=== PATIENT | female | born 1985 | race American Indian/Alaskan Native ===

== ENCOUNTER 2017-08-03 01:22 | Emergency (ER) | payer BC, OTHER ==
[~2017-08-03] VITALS: Ht 167.6 cm; Wt 99.8 kg
[~2017-08-03 01:22] MED LIST: IBUPROFEN600 MG PO; LIDODERM700 MG TOP; METRONIDAZOLE500 MG PO; NITROFURANTOIN100 M1 PO; VALIUM5 MG PO
[2017-08-03] MEDS ORDERED: PANTOPRAZOLE SO40 MG PO (03:46)
[2017-08-03] MEDS ORDERED: ONDANSETRON HCL4 MG PO (03:46)
[2017-08-03] MEDS ORDERED: NUVARING VAGIN1 EACH VAGINAL (03:46)
[2017-08-03] MEDS ORDERED: LOPERAMIDE2 MG PO (03:47)
[2017-08-03] MEDS ORDERED: ULTRAM50 MG PO (03:47)
== END 2017-08-03 06:08 | disposition home or self-care (01) ==
LOC: ED 01:22
DX: K52.9 Noninfective gastroenteritis and colitis, unspecified (principal); F17.200 Nicotine dependence, unspecified, uncomplicated; Z79.899 Other long term (current) drug therapy
CPT/HCPCS: 80053; 81001; 83690; 84703; 85025; 96374; 99283; J2405; J7030

== ENCOUNTER 2019-11-09 06:55 | Emergency (ER) | payer BC, OTHER ==
[~2019-11-09] VITALS: Ht 167.6 cm; Wt 93.0 kg
[~2019-11-09 06:55] MED LIST changes: +LOPERAMIDE2 MG PO; +NUVARING VAGIN1 EACH VAGINAL; +ONDANSETRON HCL4 MG PO; +PANTOPRAZOLE SO40 MG PO; +ULTRAM50 MG PO
[2019-11-09] MEDS ORDERED: SULFAMETHOXAZO1 EAC1 PO (07:18)
[2019-11-09] MEDS ORDERED: CLINDAMYCIN HC300 MG PO (07:19)
[2019-11-09] MEDS ORDERED: IBU600 MG PO (07:20)
[2019-11-09] MEDS ORDERED: NORCO 7.5-3251 EACH PO (10:19)
[2019-11-09] MEDS ORDERED: ONDANSETRON ODT8 MG PO (10:38)
== END 2019-11-09 11:45 | disposition home or self-care (01) ==
LOC: ED 06:55
DX: K61.1 Rectal abscess (principal); F17.200 Nicotine dependence, unspecified, uncomplicated; Z79.899 Other long term (current) drug therapy
CPT/HCPCS: 46040; 72193; 80053; 81001; 83605; 84703; 85025; 99284-25; A9270; J1170; J1885; J2405; J2543; J3010; J7030; Q9967

== ENCOUNTER 2020-03-01 12:59 | Emergency (ER) | payer BC, OTHER ==
[~2020-03-01] VITALS: Ht 152.4 cm; Wt 96.2 kg
[~2020-03-01 12:59] MED LIST changes: +CLINDAMYCIN HC300 MG PO; +IBU600 MG PO; +NORCO 7.5-3251 EACH PO; +ONDANSETRON ODT8 MG PO; +SULFAMETHOXAZO1 EAC1 PO
[2020-03-01] MEDS ORDERED: NORCO 7.5-3251 EACH PO (14:14)
[2020-03-01] MEDS ORDERED: CLEOCIN HCL300 MG PO (14:14)
== END 2020-03-01 14:32 | disposition home or self-care (01) ==
LOC: ED 12:59
DX: K62.89 Other specified diseases of anus and rectum (principal); L98.8 Other specified disorders of the skin and subcutaneous tissue; F17.200 Nicotine dependence, unspecified, uncomplicated
CPT/HCPCS: 99283

== ENCOUNTER 2020-03-05 15:38 | Emergency (ER) | payer BC, OTHER ==
[~2020-03-05] VITALS: Ht 167.6 cm; Wt 96.2 kg
[~2020-03-05 15:38] MED LIST changes: +CLEOCIN HCL300 MG PO
--- OUTSIDE RECORDS SUMMARY | 2020-03-05 15:40 | XMS ---
PreManage Notification: THIAGO COON Security Used Car Lot Porter Events No recent Security Events currently on file CRITERIA MET - [facility] - 2 Visits in 30 Days CARE PROVIDERS JOSH LÓPEZ Nurse Practitioner: Adult Health Current PHONE: Unknown Aron has no Care Guidelines for this patient. Melisa VISIT COUNT (12 MO.) 3 [facility] TOTAL 3 NOTE: Visits indicate total known visits. ED/UCC VISIT TRACKING (12 MO.) 03/05/2020 15:39 [facility] [place] TYPE: Emergency COMPLAINT: - RECTAL PAIN 03/01/2020 12:59 [facility] [place] TYPE: Emergency COMPLAINT: - SKIN PROBLEM DIAGNOSES: - Other specified disorders of the skin and subcutaneous tissue - Other specified diseases of anus and rectum - Nicotine dependence, unspecified, uncomplicated 11/09/2019 06:56 [facility] [place] TYPE: Emergency COMPLAINT: - POSSIBLE ABSCESS DIAGNOSES: - Nicotine dependence, unspecified, uncomplicated - Other senior care (current) drug therapy - Rectal abscess INPATIENT VISIT TRACKING (12 MO.) No inpatient visits to display in this time frame [email or web address]
== END 2020-03-05 18:49 | disposition home or self-care (01) ==
LOC: ED 15:38
DX: K61.1 Rectal abscess (principal); F17.200 Nicotine dependence, unspecified, uncomplicated
CPT/HCPCS: 72194; 80048; 81001; 84703; 85025; 99283-25; Q9967

== ENCOUNTER 2020-03-21 19:26 | Observation (INO) | payer BC, OTHER ==
[~2020-03-21] VITALS: Ht 167.6 cm; Wt 100.3 kg
--- OUTSIDE RECORDS SUMMARY | 2020-03-21 19:30 | XMS ---
PreManage Notification: THIAGO COON Security Cut Off Machine Unloader Events No recent Security Events currently on file CRITERIA MET - [facility] - 2 Visits in 30 Days CARE PROVIDERS JOSH LÓPEZ Nurse Practitioner: Adult Health Current PHONE: Unknown Aron has no Care Guidelines for this patient. Care History Medical/Surgical 03/06/2020 [facility] - DR SEN RECEIVED REFERRAL FROM [facility] 03/05/20. CURRENTLY WAITING ON 10/2019 OP REPORT FOR REVIEW. ONCE REVIEW IS COMPLETE- AN APT WILL BE SCHEDULED. Melisa VISIT COUNT (12 MO.) 4 [facility] TOTAL 4 NOTE: Visits indicate total known visits. ED/UCC VISIT TRACKING (12 MO.) 03/21/2020 19:29 [facility] OR TYPE: Emergency COMPLAINT: - LEFT BUTTOCKS PAIN AND BLOOD DISCHARGE 03/05/2020 15:39 [facility] OR TYPE: Emergency COMPLAINT: - RECTAL PAIN, SKIN PROBLEM DIAGNOSES: - Rectal abscess - Nicotine dependence, unspecified, uncomplicated 03/01/2020 12:59 [facility] OR TYPE: Emergency COMPLAINT: - SKIN PROBLEM DIAGNOSES: - Other specified disorders of the skin and subcutaneous tissue - Other specified diseases of anus and rectum - Nicotine dependence, unspecified, uncomplicated 11/09/2019 06:[address] [facility] [place] TYPE: Emergency COMPLAINT: - POSSIBLE ABSCESS DIAGNOSES: - Nicotine dependence, unspecified, uncomplicated - Other alf (current) drug therapy - Rectal abscess INPATIENT VISIT TRACKING (12 MO.) No inpatient visits to display in this time frame [email or web address]
--- NOTE | 2020-03-21 21:30 | NUR ---
PT ARRIVES TO FLOOR VIA STRETCHER, ABLE TO STAND AND TRANSFER TO THE BED. FAMILY PRESENT WITH PT. ADMISSION PROCESS COMPLETE. PT RATES PAIN4-5/10, REQUESTS PRN PAIN MEDICATION. POC FOR THIS SHIFT DISCUSSED, CALL LIGHT EDUCATION PROVIDED. PT DENIES QUESTIONS OR CONCERNS. PRIMARY RN PRESENT IN ROOM CUTTER AND EDGE TRIMMER EXITS. CALL LIGHT IN REACH.
--- NOTE | 2020-03-21 22:30 | NUR ---
ASSESSMENT COMPLETED. PT PAIN 7/10, PRN PAIN MED PROVIDED. GCS 15, A&O X4. LUNGS CLEAR. IVs WNL, CDI, FLUSHED WELL. IV FLUIDS INFUSING PER ORDER. ABD SOFT, NONTENDER, PT STATES NORMAL, BOWEL TONES ACTIVE. CMS INTACT. PT IS WEARING A PAD TO COLLECT ALMA DELIA-RECTAL FISTULA DISCHARGE, SS BLOOD, SMALL AMOUNT. SCHEDULED ANTIBIOTIC NOT GIVEN DUE TO A DOSE BEING GIVEN IN ER. RN CALLED TELEPHARMACY TO GET ORDER TO SKIP THIS DOSE AND RESUME MEDICATION IN MORNING. NO OTHER NEEDS AT THIS TIME. CALL LIGHT IN REACH.
--- NOTE | 2020-03-22 00:25 | NUR ---
CALL LIGHT ANSWERED, PT AMBULATED TO BR WITH SBA. IVF INFUSING WNL. 400 ML VOID, SMALL AMOUT BLOOD NOTED IN TOILET. PT REPORTS NO OTHER NEEDS, WATER AND JELLO REMOVED PT IS NOW NPO. CALL LIGHT IN REACH.
--- NOTE | 2020-03-22 01:57 | NUR ---
PT REPORTS 5/10 BUTTOCKS PAIN, PRN PAIN MED PROVIDED. SCHEDULED MED PROVIDED. ASSESSMENT COMPLETED. IVs WNL. IV FLUIDS INFUSING PER ORDER. NO OTHER NEEDS AT THIS TIME. CALL LIGHT IN REACH.
--- NOTE | 2020-03-22 04:00 | NUR ---
PT RESTING IN BED, EYES CLOSED. RR EVEN, UNLABORED. CALL LIGHT IN REACH.
--- NOTE | 2020-03-22 05:28 | NUR ---
PT UP TO BR AND BACK TO BED. SCHEDULED MEDS PROVIDED. VS AND I&O COMPLETED. NO OTHER NEEDS AT THIS TIME. CALL LIGHT IN REACH.
--- NOTE | 2020-03-22 07:27 | NUR ---
Report from Marisela Lutz RN. Patient resting in bed on left side with eyes closed, respirations even and unlabored. Call light in reach, bed rails up X2.
--- NOTE | 2020-03-22 08:06 | NUR ---
Dr. Bonilla in to see patient. Wound assessed. Wipes and clean gown provided for surgical wipe down. Patient ambulates to bathroom, continent of urine. Medications administered as prescribed. Denies other needs. Call light in reach, bed rails up X2.
--- NOTE | 2020-03-22 09:35 | NUR ---
03/22/20 0935 Herlinda Russo PATIENT ARRIVES TO PACU WITH NO OXYGEN IN PLACE. PATIENT IS TALKING, SLURRING WORDS. PATIENT DENIES PAIN AND NAUSEA. GLASSES ARE GIVEN AND PATIENT PLACES THEM ON HERSELF.
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
--- NOTE | 2020-03-22 09:57 | NUR ---
PATIENT ARRIVES FROM OR VIA STRETCHER. MOVES TO BED INDEPENDENTLY. ASSESSMENT COMPLETED. DRESSING INTACT WITH MINIMAL DRAINAGE NOTED. ALERT AND ORIENTED, DENIES PAIN.
[2020-03-22] MEDS ORDERED: HYDROCODON-ACE1 EAC8 PO (10:34)
[2020-03-22] MEDS ORDERED: BACTRIM DS TAB1 EACH PO (10:35)
--- NOTE | 2020-03-22 11:05 | NUR ---
ALERT AND ORIENTED. VITALS OBTAINED. DENIES PAIN AT THIS TIME. DRESSING REMAINS UNCHANGED.
--- NOTE | 2020-03-22 12:53 | NUR ---
AMBULATES IN [facility] WITH STANDBY ASSIST. WALKS APPROXIMATELY 100 FEET. BECOMES DIZZY UPON INITIAL STANDING, PASSES WITH TIME. RETURNS TO BED. DENIES OTHER NEEDS. CALL LIGHT IN REACH, BED RAILS UP X2.
--- NOTE | 2020-03-23 11:09 | OR ---
[facility] [address], [place] [address] Signed DATE OF OPERATION: 03/22/2020 SURGEON: Khadijah Bonilla MD PREOPERATIVE DIAGNOSIS: Left perirectal abscess. POSTOPERATIVE DIAGNOSIS: Left perirectal abscess. PROCEDURE: Incision and drainage of left perianal abscess. ESTIMATED BLOOD LOSS: None. INDICATIONS: Bri is a 34-year-old young lady, who in the fall developed pain and swelling in the left lateral perianal area. She had incision and drainage of that abscess by our local surgeon, Dr. Baez. She then eventually made a way to my office where she is having intermittent drainage from this area. There was a small opening in her skin. She came to emergency room this weekend with some increased pressure and finally broke through the skin last night, she said it felt much better. It was accompanied by some blood and pus. We can easily see the opening in her skin. I explained to Bri we should open that skin and allow that to evacuate. She understands about half of these will heal, but the other half developed fistula tract and have to be addressed at a later date. She understands there is risk to the surgery including, but not limited to bleeding, infection, scarring, change in contour of the skin as well as recurrent abscesses of fistula tract. She had expressed understanding and wished to proceed. PROCEDURE NOTE: Bri was taken into the operating room and placed in the prone alcon-knife position with appropriate padding and monitoring. She had received a saddle block by our nurse echocardiologist. She was given IV sedation by the nurse echocardiologist. She was then prepped and draped in the usual sterile fashion. She was on preoperative antibiotics along with her SCDs. She was then prepped and draped in the usual sterile fashion. A digital rectal exam was performed and we carefully examined the dentate line and with pressure in the lateral position, we never could find any opening along the dentate line. We did not feel a specific radial indurated tract over the dentate line. It is less than 3 cm from the anal verge. Nevertheless, we did check the posterior midline and it was seemed Electronically Signed By: KHADIJAH BONILLA MD 03/23/20 1109 PATIENT NAME: BRI COON OPERATIVE REPORT DATE OF : 89 REPORT #: [id number] PHYSICIAN: KHADIJAH BONILLA MD PCP: [facility] REPORT IS CONFIDENTIAL AND NOT TO BE RELEASED WITHOUT AUTHORIZATION [facility] [address] [place] [id number] Signed to be fine. We opened an elliptical area skin about a cm in length and about 6 or 7 mm wide. We probed the fistula tract with lacrimal duct went down about a cm or two to the muscles and stopped dentate line. We took our deep wound cultures and cleansed the area. Dakin soaked gauze was then placed into the wound and this was covered with dry gauze and ABD and mesh underwear. After this, Bri was rolled into the supine position in her hospital bed and taken into the recovery room in stable condition. Khadijah Bonilla MD ALB/MODL /[id number] cc: Khadijah Bonilla MD [facility] Copies: KHADIJAH BONILLA MD ~ Electronically Signed By: KHADIJAH BONILLA MD 03/23/20 1109 PATIENT NAME: BRI COON OPERATIVE REPORT DATE OF : 89 REPORT #: [id number] PHYSICIAN: KHADIJAH BONILLA MD PCP: [facility] REPORT IS CONFIDENTIAL AND NOT TO BE RELEASED WITHOUT AUTHORIZATION
== END 2020-03-22 12:42 | disposition home or self-care (01) ==
LOC: ED 19:26 → MS 19:30
PROVIDERS: ADMIT Colon & Rectal Surgery; ATTEND Colon & Rectal Surgery
PROC: 0H98X0Z Drainage of Buttock Skin with Drainage Device, External Approach (ICD-10-PCS; principal; 2020-03-22 08:32)
DX: K61.1 Rectal abscess (principal); F17.210 Nicotine dependence, cigarettes, uncomplicated; Z20.822 Contact with and (suspected) exposure to COVID-19
CPT/HCPCS: 00902; 80053; 84703; 85025; 96365; 96366; 96367; 96372; 96375; 96376; 99284-25; C9803; G0378; J0692; J1170; J1644; J2001; J2250; J2405; J2704; J7030; J7121; U0003

== ENCOUNTER 2020-04-22 12:22 | Emergency (ER) | payer BC, OTHER ==
[~2020-04-22] VITALS: Ht 167.6 cm; Wt 100.2 kg
[~2020-04-22 12:22] MED LIST changes: +BACTRIM DS TAB1 EACH PO; +HYDROCODON-ACE1 EAC8 PO
--- OUTSIDE RECORDS SUMMARY | 2020-04-22 12:28 | XMS ---
PreManage Notification: THIAGO COON Security Adobe Maker Events No recent Security Events currently on file CRITERIA MET - [facility] - Has Care Guidelines CARE PROVIDERS JOSH LÓPEZ Nurse Practitioner: Adult Health Current PHONE: Unknown [facility] 03/24/2020-[facility] PHONE: [phone] Aron has no Care Guidelines for this patient. Care History Medical/Surgical 04/10/2020 [facility] PATIENT CAN CALL HER MATERIAL DAMAGE APPRAISER AT [facility] PPO: CLAY CONDON\T\ nbsp;\T\nbsp; [phone] 03/24/2020 [facility] PATIENT IS [facility] ELIGIBLE, \T\middot;\T\nbsp; PLEASE REFER PATIENT TO [facility] FOR NON EMERGENT MEDICAL NEEDS. \T\middot;\T\nbsp; [facility] CAN SEE PATIENTS SAME DAY FOR APTS IF PATIENT CALLS FIRST THING IN THE MORNING. 03/06/2020 [facility] - DR SEN RECEIVED REFERRAL FROM [facility] 03/05/20. CURRENTLY WAITING ON 10/2019 OP REPORT FOR REVIEW. ONCE REVIEW IS COMPLETE- AN APT WILL BE SCHEDULED. Melisa VISIT COUNT (12 MO.) 5 [facility] TOTAL 5 NOTE: Visits indicate total known visits. ED/UCC VISIT TRACKING (12 MO.) 04/22/2020 12:23 [facility] [place] TYPE: Emergency COMPLAINT: - SKIN PROBLEM 03/21/2020 19:29 [facility] [place] TYPE: Emergency [...] - Nicotine dependence, unspecified, uncomplicated - Other adjunct faculty for medical terminology (current) drug therapy - Rectal abscess INPATIENT VISIT TRACKING (12 MO.) 03/21/2020 19:30 [facility] [place] TYPE: Observation COMPLAINT: - PERIRECTAL ABSCESS DIAGNOSES: - Nicotine dependence, cigarettes, uncomplicated - Rectal abscess [email or web address]
[2020-04-22] MEDS ORDERED: ULTRAM50 MG PO (13:56)
[2020-04-22] MEDS ORDERED: CLEOCIN HCL300 MG PO (13:56)
== END 2020-04-22 14:00 | disposition home or self-care (01) ==
LOC: ED 12:22
DX: L02.31 Cutaneous abscess of buttock (principal); F17.200 Nicotine dependence, unspecified, uncomplicated
CPT/HCPCS: 10060; 87070; 87077; 87186; 87205; 99283-25

== ENCOUNTER 2020-08-17 17:37 | Emergency (ER) | payer BC, OTHER ==
[~2020-08-17] VITALS: Ht 167.6 cm; Wt 100.2 kg
--- OUTSIDE RECORDS SUMMARY | 2020-08-17 17:46 | XMS ---
PreManage Notification: THIAGO COON Security Marketing Director Events No recent Security Events currently on file CRITERIA MET - [facility] - Has Care Guidelines CARE PROVIDERS [facility] 03/24/2020-[facility] PHONE: [phone] Aron has no Care Guidelines for this patient. Care History Medical/Surgical 04/10/2020 [facility] PATIENT CAN CALL HER HAIR SPRING WINDER AT [facility] PPO: CLAY CONDON\T\ nbsp;\T\nbsp; [phone] 03/24/2020 [facility] PATIENT IS [facility] ELIGIBLE, \T\middot;\T\nbsp; PLEASE REFER PATIENT TO [facility] FOR NON EMERGENT MEDICAL NEEDS. \T\middot;\T\nbsp; [facility] CAN SEE PATIENTS SAME DAY FOR APTS IF PATIENT CALLS FIRST THING IN THE MORNING. 03/06/2020 [facility] - DR SEN RECEIVED REFERRAL FROM [facility] 03/05/20. CURRENTLY WAITING ON 10/2019 OP REPORT FOR REVIEW. ONCE REVIEW IS COMPLETE- AN APT WILL BE SCHEDULED. E.D. VISIT COUNT (12 MO.) [address] [facility] TOTAL 6 NOTE: Visits indicate total known visits. ED/UCC VISIT TRACKING (12 MO.) 08/17/2020 17:38 [facility] [place] TYPE: Emergency COMPLAINT: - VOMITING, SHAKINESS 04/22/2020 12:[address] [facility] [place] TYPE: Emergency COMPLAINT: - SKIN PROBLEM DIAGNOSES: - Nicotine dependence, unspecified, uncomplicated - Cutaneous abscess of buttock 03/21/2020 19:29 [facility] [place] TYPE: Emergency [...] - Nicotine dependence, unspecified, uncomplicated - Other intermediate frame tender (current) drug therapy - Rectal abscess INPATIENT VISIT TRACKING (12 MO.) 03/21/2020 19:30 [facility] TYPE: Observation COMPLAINT: - PERIRECTAL ABSCESS DIAGNOSES: - Nicotine dependence, cigarettes, uncomplicated - Rectal abscess [email or web address]
[2020-08-17] MEDS ORDERED: ONDANSETRON ODT8 MG PO (19:07)
== END 2020-08-17 19:25 | disposition home or self-care (01) ==
LOC: ED 17:37
DX: K29.00 Acute gastritis without bleeding (principal); F17.200 Nicotine dependence, unspecified, uncomplicated
CPT/HCPCS: 80048; 80053; 81001; 83690; 84703; 85025; 96374; 99284-25; J2405; J7030

== ENCOUNTER 2020-09-24 18:15 | Emergency (ER) | payer BC, OTHER ==
[~2020-09-24] VITALS: Ht 167.6 cm; Wt 100.2 kg
[2020-09-24] MEDS ORDERED: IBU600 MG PO (19:55)
--- OUTSIDE RECORDS SUMMARY | 2020-09-24 20:01 | XMS ---
PreManage Notification: THIAGO COON Security Visual Aid Expert Events No recent Security Events currently on file CRITERIA MET - [facility] - Has Care Guidelines - [facility] - 2 Visits in 30 Days - PDMP CARE PROVIDERS [facility] 03/24/2020-[facility] PHONE: [phone] Aron has no Care Guidelines for this patient. Care History Medical/Surgical 04/10/2020 [facility] PATIENT CAN CALL HER SCHEDULER MAINTENANCE AT [facility] PPO: CLAY CONDON\T\ nbsp;\T\nbsp; [phone] 03/24/2020 [facility] PATIENT IS [facility] ELIGIBLE, \T\middot;\T\nbsp; PLEASE REFER PATIENT TO [facility] FOR NON EMERGENT MEDICAL NEEDS. \T\middot;\T\nbsp; [facility] CAN SEE PATIENTS SAME DAY FOR APTS IF PATIENT CALLS FIRST THING IN THE MORNING. 03/06/2020 [facility] - DR SEN RECEIVED REFERRAL FROM [facility] 03/05/20. CURRENTLY WAITING ON 10/2019 OP REPORT FOR REVIEW. ONCE REVIEW IS COMPLETE- AN APT WILL BE SCHEDULED. E.D. VISIT COUNT (12 MO.) 8 [facility] TOTAL 8 NOTE: Visits indicate total known visits. ED/UCC VISIT TRACKING (12 MO.) 09/24/2020 18:16 [facility] TYPE: Emergency COMPLAINT: - POST OP PROBLEM 08/29/2020 08:24 [facility] TYPE: Emergency COMPLAINT: - R ANKLE PAIN 08/17/2020 17:38 [facility] TYPE: Emergency COMPLAINT: - VOMITING, SHAKINESS DIAGNOSES: - Acute gastritis without bleeding - Nicotine dependence, unspecified, uncomplicated - Nausea with vomiting, unspecified 04/22/2020 12:23 [facility] [place] TYPE: Emergency [...] - Nicotine dependence, unspecified, uncomplicated - Other residential (current) drug therapy - Rectal abscess INPATIENT VISIT TRACKING (12 MO.) 03/21/2020 19:30 [facility] TYPE: Observation COMPLAINT: - PERIRECTAL ABSCESS DIAGNOSES: - Nicotine dependence, cigarettes, uncomplicated - Rectal abscess [email or web address]
[2020-09-24] MEDS ORDERED: PERCOCET 5-3251 EACH PO (22:34)
== END 2020-09-24 23:13 | disposition home or self-care (01) ==
LOC: ED 18:15
DX: G89.18 Other acute postprocedural pain (principal); K62.89 Other specified diseases of anus and rectum; F17.200 Nicotine dependence, unspecified, uncomplicated
CPT/HCPCS: 72193; 80053; 85025; 96375; 99284-25; J1170; J1200; J2405; J7030; Q9967

== ENCOUNTER 2020-12-13 17:14 | Emergency (ER) | payer BC, OTHER ==
[~2020-12-13] VITALS: Ht 167.6 cm; Wt 111.3 kg
[~2020-12-13 17:14] MED LIST changes: +PERCOCET 5-3251 EACH PO
--- OUTSIDE RECORDS SUMMARY | 2020-12-13 17:16 | XMS ---
PreManage Notification: THIAGO COON Security Driller Brake Lining Events No recent Security Events currently on file CRITERIA MET - PDM - [facility] - Has Care Guidelines CARE PROVIDERS [facility] 03/24/2020-[facility] PHONE: [phone] Aron has no Care Guidelines for this patient. Care History Medical/Surgical 04/10/2020 [facility] PATIENT CAN CALL HER HAT LINER AT [facility] PPO: CLAY CONDON\T\ nbsp;\T\nbsp; [phone] 03/24/2020 [facility] PATIENT IS [facility] ELIGIBLE, \T\middot;\T\nbsp; PLEASE REFER PATIENT TO [facility] FOR NON EMERGENT MEDICAL NEEDS. \T\middot;\T\nbsp; [facility] CAN SEE PATIENTS SAME DAY FOR APTS IF PATIENT CALLS FIRST THING IN THE MORNING. 03/06/2020 [facility] - DR SEN RECEIVED REFERRAL FROM [facility] 03/05/20. CURRENTLY WAITING ON 10/2019 OP REPORT FOR REVIEW. ONCE REVIEW IS COMPLETE- AN APT WILL BE SCHEDULED. E.D. VISIT COUNT (12 MO.) 8 [facility] TOTAL 8 NOTE: Visits indicate total known visits. ED/UCC VISIT TRACKING (12 MO.) 12/13/2020 17:14 [facility] TYPE: Emergency COMPLAINT: - ALLERGIC REACTION 09/24/2020 18:16 [facility] TYPE: Emergency COMPLAINT: - POST OP PROBLEM DIAGNOSES: - Other specified diseases of anus and rectum - Other acute postprocedural pain - Nicotine dependence, unspecified, uncomplicated 08/29/2020 08:24 [facility] TYPE: Emergency [...] and rectum - Nicotine dependence, unspecified, uncomplicated INPATIENT VISIT TRACKING (12 MO.) 03/21/2020 19:30 [facility] TYPE: Observation COMPLAINT: - PERIRECTAL ABSCESS DIAGNOSES: - Nicotine dependence, cigarettes, uncomplicated - Rectal abscess [email or web address]
[2020-12-13] MEDS ORDERED: PREDNISONE20 MG PO (19:26)
== END 2020-12-13 19:52 | disposition home or self-care (01) ==
LOC: ED 17:14
DX: L50.0 Allergic urticaria (principal); F17.200 Nicotine dependence, unspecified, uncomplicated; Z79.899 Other long term (current) drug therapy
CPT/HCPCS: 99283; J7512; Q0163

== ENCOUNTER 2021-03-12 17:26 | Inpatient (IN) | payer BC, OTHER ==
[~2021-03-12] VITALS: Ht 167.6 cm; Wt 113.0 kg
[~2021-03-12 17:26] MED LIST changes: +PREDNISONE20 MG PO
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
--- NOTE | 2021-03-12 21:54 | NUR ---
TELEPHONE REPORT RECEIVED FROM ED RN RUSS. QUESTIONS ANSWERED, AWAITING pt's ARRIVAL TO FLOOR. [facility] RN JEAN PAUL UPDATED ON REPORT AND WILL TAKE OVER PRIMARY RN ONCE pt ARRIVES TO FLOOR.
--- NOTE | 2021-03-12 22:33 | NUR ---
2209-PT ARRIVED FROM ED VIA STRETCHER. SHE WAS ALREADY IN BED ASSISTED BY TRACI KOO AND VS TAKEN. REVIEWED PT'S HX WITH HER, PT'S MOM IS IN THE ROOM AND WILL TAKE PT'S BELONGINGS HOME. PRIMARY RN JEAN PAUL IS NOW IN ROOM WITH THE PT.
--- NOTE | 2021-03-12 23:00 | NUR ---
ASSESSMENT COMPLETED. GCS 15, A&O X4. LUNGS CLEAR, CPOX 98% ON RA. HEART TONES REGULAR. ABD SOFT, NONTENDER, BOWEL TONES ACTIVE, PT STATES ABD PAIN IS 2/10, TOLERABLE. PAIN MANAGEMENT EDUCATION PROVIDED. CMS INTACT. PT HAS A SCAR ON RIGHT GARCIA AND FOREHEAD. IV WNL, CDI, FLUSHED WELL. IV FLUIDS INFUSING PER ORDER. PT STATES PERIRECTAL ABCESS IS WNL AND SHE CLEANS THE AREA WHEN USING BR. SAFETY EDUCATION PROVIDED. NO OTHER NEEDS. CALL LIGHT IN REACH.
--- NOTE | 2021-03-13 | NUR ---
ORAL FLUIDS REMOVED FROM ROOM. PT RESTING IN BED, EYES CLOSED. RR EVEN, UNLABORED. CALL LIGHT IN REACH.
--- NOTE | 2021-03-13 02:00 | NUR ---
PT RESTING IN BED, EYES CLOSED. RR EVEN, UNLABORED. CALL LIGHT IN REACH.
--- NOTE | 2021-03-13 03:00 | NUR ---
SCHEDULED MED PROVIDED. PT REPORTS NAUSEA, PRN PAIN NAUSEA MED PROVIDED. ASSESSMENT COMPLETED. PT REPORTS 3/10 ABD PAIN, DENIES NEED FOR PAIN MED. ABD SOFT, NONTENDER, BOWEL TONES ACTIVE. PT DENIES SOB. NO OTHER NEEDS. CALL LIGHT IN REACH.
--- NOTE | 2021-03-13 06:40 | NUR ---
IN TO GET VITALS, PT WAS UP TO VOID, NO FURTHER NEEDS
--- NOTE | 2021-03-13 06:55 | NUR ---
PT HAS SLEPT MOST THE EVENING. TOLERATED CLEAR LIQUIDS WELL. PT HAS NOT REQUESTED PAIN MEDS. SHE HAS HAD LOW LEVEL PAIN, 2-3/10, BUT DENIES NEED FOR MEDICATION. PT DID HAVE NAUSEA AND PRN NAUSEA MED WAS PROVIDED. IV WNL, VSS AND UOS. ALMA DELIA RECTAL ABCESS WNL, PT CARES FOR WOUND HERSELF. LUNGS CLEAR IN UPPER LOBES AND DIM IN LOWER LOBES.
--- NOTE | 2021-03-13 07:47 | NUR ---
Patient awake in bed, alert and oriented x4. Patient denies nausea and reports pain is tolerable. Iv patent, fluids infusing per provider order. Patient has no current needs. Personal supplies and call light within reach.
--- NOTE | 2021-03-13 08:25 | NUR ---
UPDATED WHITE BOARD AND PROVIDED PT WITH WARM WASHCLOTH FOR FACE. PREPARED PT'S CHAIR. PT SBA TO CHAIR. CALL LIGHT WITHIN REACH, NO FURTHER NEEDS AT THIS TIME.
--- NOTE | 2021-03-13 09:07 | NUR ---
PT RECENTLY BACK IN BED. SCDS RECONNECTED. PT AWAITING A NEW IV. CALL LIGHT WTIN REACH, NO FURTHER NEEDS AT THIS TIME.
[2021-03-13] MEDS ORDERED: CITALOPRAM HBR20 MG PO (09:52)
[2021-03-13] MEDS ORDERED: HYDROXYZINE HCL25 MG PO (09:53)
[2021-03-13] MEDS ORDERED: IBUPROFEN400 MG PO (09:54)
[2021-03-13] MEDS ORDERED: OMEPRAZOLE20 M1 PO (09:54)
[2021-03-13] MEDS ORDERED: REGULOID PO (09:56)
[2021-03-13] MEDS ORDERED: TRAZODONE HCL50 MG PO (09:57)
--- NOTE | 2021-03-13 09:57 | NUR ---
MED REC COMPLETED BY PHARMACY
--- NOTE | 2021-03-13 10:15 | NUR ---
Morphine 2mg IV admin for reports of 5/10 abdominal pain.
--- NOTE | 2021-03-13 11:15 | NUR ---
ASSISTED PT IN PRE-SURGICAL [place]IP[place]. FRESH GOWN IN PLACE, COMPLETE LINEN CHANGE DONE. ROOM TIDIED. CALL LIGHT WITHIN REACH, NO FURTHER NEEDS AT THIS TIME.
--- NOTE | 2021-03-13 11:24 | NUR ---
Patient left unit for surgery.
--- NOTE | 2021-03-13 13:15 | NUR ---
03/13/21 1315 Anisha Miranda 1308-PATIENT ARRIVED TO PACU ON RA AWAKE RR EVEN. DENIES PAIN OR NAUSEA. SR HR 90'S. IVF INFUSING. 1315-PATIENT AWAKE DENIES PAIN OR NAUSEA. WILL GIVE SOME JUICE RA 95% RR EVEN. IV ABX INFUSING.
--- NOTE | 2021-03-13 13:53 | NUR ---
Patient back to medical floor. Patient awake, a&ox4. Patient reports hip area is numb. Small amoun of ernie blood noted on rectal abd. Patient provded with water and snack. Vital signs are stable. No current needs. Bed alarm intact.
--- NOTE | 2021-03-13 15:30 | NUR ---
Spoke with Bri, she lives in an appt in town. Lives alone. Mom lives in town and will assist her. She denies needs. Uses [facility], not sure if she still has a pcp there. I will contact and schedule appt. Plans on dc to home with mom to assist her.
--- NOTE | 2021-03-13 15:45 | NUR ---
Patient reports she is doing well- no nausea, pain reported to be tolerable. Vital signs are stable, afebrile. Scant sarosang drainage noted on abd pad. No current needs. IV site is patent.
--- NOTE | 2021-03-13 16:02 | NUR ---
pERCOCET ONE TAB 7.5/325MG PO ADMIN FOR REPORTS OF 6/10 RECTAL PAIN.
--- NOTE | 2021-03-13 16:41 | NUR ---
AMBULATED PT AROUND NURSE'S STATIONS FOR ONE LAP. PT WAS STEADY ON FEET BUT WAS READY TO GO BACK TO BED AFTER ONE LAP. CALL LIGHT WITHIN REACH, NO FURTHER NEEDS AT THIS TIME.
--- NOTE | 2021-03-13 17:37 | NUR ---
PT EATING DINNER. MOTHER IN ROOM. CALL LIGHT WITHIN REACH, NO FURTHER NEEDS AT THIS TIME.
--- NOTE | 2021-03-13 17:52 | NUR ---
Ibuprofen 600mg po admin for rectal pain, 07/31.
--- NOTE | 2021-03-13 17:56 | NUR ---
Patient is doing well this evening, tolerating dinner well. Patient to do sitz bath after dinner. No current needs. Personal supplies and call light within reach.
--- NOTE | 2021-03-13 18:54 | NUR ---
Admin morphine 2mg IVP for reports of 6/10 rectal pain.
--- NOTE | 2021-03-13 19:30 | NUR ---
SHIFT REPORT RECEIVED FROM [facility] PRITI WELCH AT BEDSIDE. pt AWAKE AND RESTING IN BED. X2 YELLOW VESSLES OR SETONS IN PLACE TO BUTTOCKS D/T I&D EARLIER ON [facility]. ALMA DELIA PAD ALSO IN PLACE, NO DRAINAGE NOTED AT THIS TIME. IV FLUIDS INFUSING, SITE WNL. NO NEEDS OR CONCERNS VERBALIZED, CALL LIGHT IN REACH.
--- NOTE | 2021-03-13 21:30 | NUR ---
ASSESSMENT COMPLETE, SCHEDULED MEDS GIVEN ALONG WITH PRN PAIN MEDICATION (SEE MAR) FOR 5-6/10 PAIN. SITZ BATH COMPLETE, VSS. IV FLUIDS AND IV ABX INFUSING DIRECTED. IV SITE WNL. NO CHANGE TO X2 SETON YELLOW VESSLE DRAINS. CALL LIGHT IN REACH.
--- NOTE | 2021-03-13 23:00 | NUR ---
pt RESTING IN BED, EYES CLOSED. RR EVEN AND UNLABORED. IV SITE WNL. CALL LIGHT IN REACH.
--- NOTE | 2021-03-14 01:20 | NUR ---
VSS, I&O'S COMPLETE. ASSESSMENT COMPLETE, NO ACUTE CHANGES. pt REPROTS TOLERABLE 2-3/10 PAIN, DENIES NAUSEA. FRESH WATER AND WARM BLANKET PROVIDED. CALL LIGHT IN REACH. IV SITE WNL.
--- NOTE | 2021-03-14 05:02 | NUR ---
CALL LIGHT ANSWERED, pt REPORTING NAUSEA. PRN ZOFRAN GIVEN ALONG WITH FRESH WATER, SPRITE AND CRACKERS. SCD'S OFF PER pt REQUEST AT THIS TIME. VSS AND I&O'C COMPLETE. NO FURTHER NEEDS, CALL LIGHT IN REACH.
--- NOTE | 2021-03-14 06:52 | NUR ---
CALL LIGHT ANSWERED, IV PUMP ALARMING. IV ABX COMPLETE. IV SITE WNL. NEW BAG IV FLUIDS HUNG AND INFUSING DIRECTED. PRN MOTRIN GIVEN FOR PAIN R/T HEADACHE. CALL LIGHT IN REACH.
--- NOTE | 2021-03-14 08:15 | NUR ---
Tylenol 1000mg po admin for reports of 5/10 rectal pain.
--- NOTE | 2021-03-14 11:18 | NUR ---
Patient showered and sat in sitz bath for approximately twently minutes, tolerated well. ABD pad replaced to rectal area, scant sarosang drainage noted. Patient tolerating her diet well, denies nausea.
--- NOTE | 2021-03-14 11:44 | EKG ---
[facility] [address] [place] [address] Signed Sinus tachycardia Left axis deviation Pulmonary disease pattern Abnormal ECG No previous ECGs available Confirmed by MEHDI LOTT MD ([id number]) on 03/14/2021 11:44:16 AM Electronically Signed By: MEHDI LOTT MD 03/14/21 1144 PATIENT NAME: THIAGO COON Electrocardiogram DATE OF : 89 PHYSICIAN: MEHDI LOTT MD REPORT #: [id number] REPORT IS CONFIDENTIAL AND NOT TO BE RELEASED WITHOUT AUTHORIZATION
--- NOTE | 2021-03-14 13:26 | NUR ---
pERCOCET ONE TAB 7.5/325MG PO ADMIN FOR REPORTS OF 6/10 INCISIONAL PAIN.
--- NOTE | 2021-03-14 14:39 | NUR ---
Awake, laying on her right side. denies c/o pain
--- NOTE | 2021-03-14 14:54 | NUR ---
IN TO CHECK ON PATIENT. VITALS AND I&O'S CHARTED. PATIENT UP TO BATHROOM, SBA. CALL LIGHT IN REACH. NO FURTHER NEEDS AT THIS TIME.
--- NOTE | 2021-03-14 15:28 | NUR ---
medicated with ibuprofen c/o 45/10 rectal pain
--- NOTE | 2021-03-14 18:33 | NUR ---
Pt on room air, up to br, has voided QS and has had several semi liquid bms. Pt instructed on self Sitz bath with both Sitz bath basin/bag and with rinsing bottle. prefered and did much better with the soft plastic rinsing bottle. Dressing buttocks area. c/o burning and tenderness. medicated with Percocet and Ibuprofen with good pain relief. IVF infusing. tolerated Merren abx well. Pt encouraged to ambulate hallways, stated "I will try but my incision still hurts". Encouraged to ambulate. tolerating diet well, and fluids, uses call light. On room air. Lungs w crackles at bases. no cough.
--- NOTE | 2021-03-14 19:15 | NUR ---
SHIFT REPORT RECEIVED FROM DAYSHIFT RN ADOLFO, pt AWAKE AND RESTING IN BED. NO NEEDS VERBALIZED, CALL LIGHT IN REACH. IV FLUIDS INFUSING DIRECTED, IV SITE WNL. MOTHER REMAINS IN ROOM.
--- NOTE | 2021-03-14 20:16 | NUR ---
IN ROOM TO ASSIST PT TO RESTROOM AND BACK TO BED. VS TAKEN AND FRESH ICEWATER AT BEDSIDE. PRIMARY RN ANDRZEJ IS NOW IN THE ROOM.
--- NOTE | 2021-03-14 20:46 | NUR ---
ASSESSMENT COMPLETE, SCHEDULED MEDS GIVEN ALONG WITH PRN PAIN PILL FOR 5/10 RECTAL PAIN. X2 YELLOW VESSLES REMAIN IN PLACE, pt COMPLETED SITZ BATH. VSS AND I&O'S COMPLETE. IV FLUIDS INFUSING ALONG WITH IV ABX VIA Y-SITE. IV SITE WNL. pt DENEIS NAUSEA, AMBULATED IN HALLWAY WITH MOTHER-X2 LAPS. NO FURTHER NEEDS, CALL LIGHT IN REACH.
--- NOTE | 2021-03-14 23:13 | NUR ---
IV PUMP ALARMING, ISSUE RESOLVED. NEW BAG IV FLUIDS HUNG AND INFUSING DIRECTED. CALL LIGHT IN REACH. IV SITE WNL.
--- NOTE | 2021-03-15 00:21 | NUR ---
pt REQUESTING EDUCATION ON DIVERTICULITIS-SPECIFICALLY R/T DIET. WRITTEN EDUCATION PROVIDED.
--- NOTE | 2021-03-15 00:24 | NUR ---
IN TO ASSIST PT WITH SCDS AND IV POLE, PT UP TO VOID AT THIS TIME, BACK TO BED, NO FURTHER NEEDS
--- NOTE | 2021-03-15 00:26 | NUR ---
IV PUMP ALARMING, ISSUE RESOLVED. IV ABX COMPLETE, IV FLUIDS CONTINUE TO INFUSE DIRECTED. IV SITE WNL. NO FURTHER NEEDS VERBALIZED, CALL LIGHT IN REACH.
--- NOTE | 2021-03-15 01:49 | NUR ---
PT CALLED FOR ASSISTANCE TO THE RESTROOM AND BACK TO BED. SHE VOIDED 500MLS OF URINE. PT DENIES FURTHER NEEDS. CALL LIGHT IS CLOSE.
--- NOTE | 2021-03-15 02:21 | NUR ---
ASSESSMENT COMPLETE, SCHEDULED IV ABX INFUSING DIRECTED VIA Y-SITE WITH MAINTENANCE FLUIDS. IV SITE WNL. pt RECENTLY UP TO VOID. NO ACUTE CHANGES. CALL LIGHT IN REACH.
--- NOTE | 2021-03-15 04:52 | NUR ---
pt RESTING IN BED WITH EYES CLOSED. RR EVEN AND UNLABORED. CALL LIGHT IN REACH. IV ABX AND IV FLUIDS INFUSING DIRECTED. SITE WNL.
--- NOTE | 2021-03-15 05:17 | NUR ---
CALL LIGHT ANSWERED, pt UP TO VOID. VSS AND I&O'S COMPLETE. IV SITE WNL. FRESH WATER PROVIDED. NO FURTHER NEEDS, CALL LIGHT IN REACH.
--- NOTE | 2021-03-15 07:12 | NUR ---
PRN PAIN AND NAUSEA MEDICATION GIVEN, SEE EMAR. NO FURTHER NEEDS, IV SITE WNL. CALL LIGHT IN REACH.
--- NOTE | 2021-03-15 09:23 | NUR ---
Resting, on room air, eyes closed, no ditress, call light and fluids at bedside, IVF infusing w/o problems.
[2021-03-15] MEDS ORDERED: IBUPROFEN600 MG PO (12:14)
[2021-03-15] MEDS ORDERED: ACETAMINOPHEN500 MG PO (12:14)
[2021-03-15] MEDS ORDERED: FLAGYL375 MG PO (12:15)
[2021-03-15] MEDS ORDERED: CIPRO500 MG PO (12:16)
--- NOTE | 2021-03-15 12:31 | NUR ---
awake, watching tv, no further c/o pain. R rectal area with norma drain intact. has been doing Zitz baths w/o problems. IVF infusing. Dr Weiss in room earlier.
--- NOTE | 2021-03-15 13:33 | NUR ---
dc instructions given verbally and written, stated understanding, iv site RW dc'd tip intact. drainage to R buttocks intact. was medicated after signing dc papers. tolerating liquids and diet well. Pharmacist in room. Pt ready to dc, mother in room
--- NOTE | 2021-03-15 13:41 | NUR ---
PT REPORTED NAUSEA, IV HAD JUST BEEN REMOVED. GIVEN ONE TIME DOSE OF SL ZOFRAN AFTER BÁRBARA VILLEGAS CALLED DR PARKS
[2021-03-15] MEDS ORDERED: ONDANSETRON ODT4 MG SL (13:43)
[2021-03-15] MEDS ORDERED: MILK OF MA400 MG/5 M PO (13:44)
--- NOTE | 2021-03-16 21:03 | OR ---
[facility] [address], [place] [address] Signed DATE OF OPERATION: 03/13/2021 SURGEON: Noelle Parks MD PREOPERATIVE DIAGNOSES: 1. Recurrent left perirectal abscess. 2. History of left anterolateral rmbccww-rd-lik (greater than two years). 3. Episodic fecal incontinence. POSTOPERATIVE DIAGNOSES: 1. Recurrent left perirectal abscess. 2. History of left anterolateral hqerjon-nx-gml (greater than two years). 3. Episodic fecal incontinence. PROCEDURES: 1. Exam under anesthesia. 2. Incision and drainage of left perianal recurrent abscess. 3. Rectal biopsy (assess for inflammatory bowel disease). 4. Placement of yellow vessel seton x2. ANESTHESIA: Saddle block; Rashaun Brink CRNA and local 10 mL of 0.25% Marcaine with epinephrine. INDICATION: This 35-year-old black obese woman presented to the emergency room late last night with complaints of left perianal pain. She was found clinically to have tenderness in the area. She has a complex past history of perirectal abscess and drainage at least two years ago at [facility] in the [facility]. Additionally, she is said to have had a seton in place for three months, which was removed some time ago and what sounds like silver nitrate cautery applied to the tract. This was unsuccessful and plan for operation was made in January of this past year. However, operation delayed until March. The CT scan was performed under the direction of Dr. Jenkins which does not clearly show a perirectal abscess, but does show limited segment and sigmoid diverticulitis as well as a left basilar lung pneumonia. She was noted to have a temperature to 101.4 last night, but she does not appear toxic at this time. She is not having significant cough or hemoptysis or anything of that sort. Given her clinical findings and despite the CT scan, which does not demonstrate clear evidence of abscess, but the clinical findings clearly do. 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 I would Electronically Signed By: NOELLE PARKS MD 03/16/213 PATIENT NAME: THIAGO COON OPERATIVE REPORT DATE OF : 89 REPORT #: [id number] PHYSICIAN: NOELLE PARKS MD PCP: [facility] REPORT IS CONFIDENTIAL AND NOT TO BE RELEASED WITHOUT AUTHORIZATION [facility] [address] [place] [id number] Signed recommend exam under anesthesia, drainage of abscess and placement of yellow vessel loop seton as appropriate. Definitive open anal fistulotomy may be appropriate in due course. It is notable that she describes episodes of fecal incontinence from time to time; she has had no prior anorectal injury other than the drainage procedures as noted. The risk of bleeding, infection, failure to cure the problem this episode, and of course, variable degrees of incontinence, which she already has were reviewed in detail and she understands and wished to proceed. FINDINGS: Indeed there was some subcutaneous purulence lateral to what appeared to be a fistulous opening. A fair amount of scar tissue to the left perianal area was noted. A fistulous tract was identified and probed and secured with a seton as well as a seton type drain lateral to this to the more lateral soft tissue. Definitive fistulotomy was certainly not undertaken at this time. Rectal biopsy was obtained to assess for inflammatory bowel disease but the mucosa appeared healthy otherwise. DESCRIPTION OF PROCEDURE: The patient was brought to the operating room, given a saddle block anesthetic and placed in a prone alcon-knife position. She had been on meropenem antibiotic previously. In the prone alcon-knife position, the buttocks were taped apart. Photograph was taken of the primary problem. There was some purulence emanating from the fistulous tract. The perineum was prepared with a Betadine based solution and draped sterilely. An anal retractor was placed demonstrating reasonably normal rectal mucosa with no sign of inflammatory bowel disease proper. There was no sign of neoplasm. The fistulous tract was really not that far from the anal verge and was probed with a lacrimal duct probe to an anal crypt, no doubt the origin of her problem. This allowed for insinuation of the yellow vessel loop. Lateral to this was a subcutaneous space, it had purulent fluid as well. With similar technique, a seton was placed through the original fistulous tract extended laterally with the yellow vessel loop also using a counter incision. This allowed for irrigation of both areas. Gram stain and cultures were obtained. Bleeding was noted in the fistulous tract, likely related to granulation tissue and this was secured with cautery. Irrigation was undertaken further and the yellow vessel loops were tied in a loop without excessive tension. A peripad was applied and the patient was ultimately taken to recovery room in good condition after returning to her supine position. Blood loss was less than 20 mL in aggregate. Sponge, needle, and instrument counts were reported as correct x3. Of note, the rectal biopsy was secured not only with cautery, but a 2-0 chromic suture in a Electronically Signed By: NOELLE PARKS MD 03/16/21 2007 PATIENT NAME: JAYNA COONOMI SHON OPERATIVE REPORT DATE OF : 89 REPORT #: [id number] PHYSICIAN: NOELLE PARKS MD PCP: [facility] REPORT IS CONFIDENTIAL AND NOT TO BE RELEASED WITHOUT AUTHORIZATION [facility] [address] [place] [address] Signed horizontal mattress configuration for good hemostasis. MD GRETCHEN Her/BOY /[id number] cc: Dr. Ureña at [facility] Dr. Greta Jenkins MD Copies: GERALD JENKINS MD ~ Electronically Signed By: NOELLE PARKS MD 03/16/21 2103 PATIENT NAME: THIAGO COON OPERATIVE REPORT DATE OF : [birth year] REPORT #: [id number] PHYSICIAN: NOELLE PARKS MD PCP: [facility] REPORT IS CONFIDENTIAL AND NOT TO BE RELEASED WITHOUT AUTHORIZATION
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
--- NOTE | 2021-03-16 21:03 | DS ---
[facility] [address], [place] [address] Signed ADMISSION DATE: 03/13/2021 DISCHARGE DATE: 03/15/2021 REASON FOR ADMISSION: Recurrent left perirectal abscess, short segment sigmoid diverticulitis and left lower lobe infiltrate consistent with pneumonia. HISTORY OF PRESENT ILLNESS: This 35-year-old obese black woman, presented to the emergency room with complaints of left perianal pain. The patient underwent incision and drainage of a left perirectal abscess initially by Dr. Baez in [place], [place] in the past. She had subsequently had recurrent abscess and underwent incision and drainage by Dr. Khadijah Bonilla in February of 2020. She has since been under the care of in [facility] at which point, a seton was placed anticipating what sounds like fistulotomy. The seton was removed after being in place for 2 to 3 months as the patient complained of some amount of incontinence. Apparently, a silver nitrate stick or other method was used to cauterize the fistulous tract. Definitive surgery was planned for last month, but due to an emergency in the part of the surgeon, plans were deferred to March for definitive treatment. She presents now with pain in the left perianal area as before. Evaluation included a CT scan of the abdomen by the emergency room physician, which confirmed no sign of perianal problem, but did demonstrate a left lower lobe infiltrate consistent with pneumonia and a segment of sigmoid that showed inflammation with diverticula, considered segmental diverticulitis. She is admitted for further evaluation and care. PERTINENT PHYSICAL EXAMINATION: VITAL SIGNS: Initially showed a fever, temperature is 101.2, subsequently down to 97.6. NECK: Trachea is midline. CHEST: Clear. HEART: Regular. ABDOMEN: Quite obese, but soft. There is minimal left lower quadrant tenderness. LUNGS: She had no crackles on lung exam. Examination of perianal area shows complex scarring in the left lateral perianal area as well as tenderness and fluctuance in an area in the left lateral aspect suggestive of recurrent perirectal abscess. HOSPITAL COURSE: She was admitted, given broad-spectrum antibiotic meropenem on the basis of her multifocal infective process. On March 13, 2021, she underwent exam under anesthesia where she was found to have a recurrent left perirectal abscess and what appeared to be a reasonably distinct and clear fistula in ANO. Soft tissue lateral to the site was Electronically Signed By: NOELLE PARKS MD 03/16/21 2103 PATIENT NAME: THIAGO COON DISCHARGE SUMMARY DATE OF : 89 REPORT #: [id number] PHYSICIAN: NOELLE PARKS MD PCP: [facility] REPORT IS CONFIDENTIAL AND NOT TO BE RELEASED WITHOUT AUTHORIZATION [address] [address] Signed also undermined with inflammatory changes. The subcutaneous yellow vessel loop drain was placed as well as a yellow vessel loop seton through the fistulous tract. She was maintained on broad-spectrum antibiotics and had no progression of pneumonia clinically nor diverticulitis. Sitz baths were initiated. By the time of discharge, she is ambulating well, has no particularly symptoms and will be discharged on medication, Cipro and Flagyl for 10 days. The patient does have an appointment with her surgeon in the coming week; if he wishes to proceed with fistulotomy as planned that is fine that he wishes me to proceed with a similar plan in a few weeks. I am happy to do that as well. I have recommended the patient to do hot water sitz baths b.i.d. and after bowel movement and maintain a low-fiber diet for 2 weeks. DISCHARGE MEDICATIONS: Include: 1. Ibuprofen 600 mg p.o. q.6 hours as needed for pain #30. 2. Tylenol 1000 mg p.o. q.6 hours as needed for pain #30, refill #2. 3. Flagyl 250 mg p.o. t.i.d. #30. 4. Cipro 500 mg p.o. b.i.d. #20. She will continue her usual medications, which include: 1. Citalopram 20 mg p.o. daily. 2. Hydroxyzine 25 mg q.6 as needed for itching/agitation. 3. Omeprazole 20 mg p.o. daily. 4. Trazodone 50 mg p.o. at bedtime. I advised to stop Metamucil fiber supplement on short-term given her diverticular disease. DISCHARGE DIAGNOSES: 1. Recurrent left perirectal abscess. No doubt related to fistula in ANO. 2. Morbid obesity. 3. Left lower lobe infiltrative pneumonia (resolving). 4. Short-segment sigmoid diverticulitis. 5. Previous variable level of fecal incontinence (less prominent currently). Noelle Parks MD Electronically Signed By: NOELLE PARKS MD 03/16/21 2103 PATIENT NAME: THIAGO COON DISCHARGE SUMMARY DATE OF : 89 REPORT #: [id number] PHYSICIAN: NOELLE PARKS MD PCP: [facility] REPORT IS CONFIDENTIAL AND NOT TO BE RELEASED WITHOUT AUTHORIZATION [facility] [address] [place] [address] Signed /BOY /[id number] cc: MD Beatriz Lujan MD Copies: KHADIJAH BONILLA MD, KELLY DEAN MD ~ Electronically Signed By: NOELLE PARKS MD 03/16/212102 PATIENT NAME: THIAGO COON DISCHARGE SUMMARY DATE OF : [birth year] REPORT #: [id number] PHYSICIAN: NOELLE PARKS MD PCP: [facility] REPORT IS CONFIDENTIAL AND NOT TO BE RELEASED WITHOUT AUTHORIZATION
== END 2021-03-15 14:00 | disposition home or self-care (01) | DRG 347 ==
LOC: ED 17:26 → MS 17:27
PROVIDERS: ADMIT Surgery; ATTEND Surgery
PROC: 0DQQXZZ Repair Anus, External Approach (ICD-10-PCS; 2021-03-13)
PROC: 0D9Q0ZZ Drainage of Anus, Open Approach (ICD-10-PCS; principal; 2021-03-13 17:30)
DX: K57.32 Diverticulitis of large intestine without perforation or abscess without bleeding (principal); J18.9 Pneumonia, unspecified organism; K61.1 Rectal abscess; Z68.41 Body mass index [BMI] 40.0-44.9, adult; E66.01 Morbid (severe) obesity due to excess calories; F17.210 Nicotine dependence, cigarettes, uncomplicated; Z20.822 Contact with and (suspected) exposure to COVID-19; Z98.890 Other specified postprocedural states
CPT/HCPCS: 00902; 71045; 74177; 80053; 81001; 83605; 84703; 85025; 87070; 87075; 87205; 93005; 93010; 96366; 96375; 96376; 99285-25; A9270; C9803; G0378; J1170; J1644; J2001; J2185; J2250; J2270; J2405; J2704; J7030; J7121; Q9967; U0003

== ENCOUNTER 2021-03-16 11:24 | Emergency (ER) | payer BC, OTHER ==
[~2021-03-16] VITALS: Ht 167.6 cm; Wt 112.0 kg
[~2021-03-16 11:24] MED LIST changes: +ACETAMINOPHEN500 MG PO; +CIPRO500 MG PO; +CITALOPRAM HBR20 MG PO; +FLAGYL375 MG PO; +HYDROXYZINE HCL25 MG PO; +IBUPROFEN400 MG PO; +MILK OF MA400 MG/5 M PO; +OMEPRAZOLE20 M1 PO; +ONDANSETRON ODT4 MG SL; +REGULOID PO; +TRAZODONE HCL50 MG PO
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
--- NOTE | 2021-03-16 18:36 | EKG ---
[facility] [address] [place], [place] [address] Signed Normal sinus rhythm Normal ECG No previous ECGs available Confirmed by RACHEL COLEY DO ([id number]) on 03/16/2021 6:35:57 PM Electronically Signed By: RACHEL COLEY DO 03/16/21 1836 PATIENT NAME: THIAGO COON Electrocardiogram DATE OF : 89 PHYSICIAN: RACHEL COLEY DO REPORT #: [id number] REPORT IS CONFIDENTIAL AND NOT TO BE RELEASED WITHOUT AUTHORIZATION
== END 2021-03-16 14:30 | disposition home or self-care (01) ==
LOC: ED 11:24
DX: R07.89 Other chest pain (principal); F17.200 Nicotine dependence, unspecified, uncomplicated; Z79.899 Other long term (current) drug therapy
CPT/HCPCS: 71045; 84484; 93005; 93010; 99285-25

== ENCOUNTER 2021-05-01 08:14 | Emergency (ER) | payer BC, OTHER ==
[~2021-05-01] VITALS: Ht 167.6 cm; Wt 112.0 kg
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
[2021-05-01] MEDS ORDERED: IBUPROFEN800 MG PO (09:07)
[2021-05-01] MEDS ORDERED: METAMUCIL FIBE3.4 GM PO (09:07)
[2021-05-01] MEDS ORDERED: MILK OF MA400 MG/5 M PO (09:07)
[2021-05-01] MEDS ORDERED: OXYCODONE-ACET1 EAC1 PO (09:07)
== END 2021-05-01 10:28 | disposition home or self-care (01) ==
LOC: ED 08:14
DX: K59.00 Constipation, unspecified (principal); Z98.890 Other specified postprocedural states; F17.200 Nicotine dependence, unspecified, uncomplicated; Z79.899 Other long term (current) drug therapy
CPT/HCPCS: 81001; 99283

== ENCOUNTER 2022-08-09 17:23 | Emergency (ER) | payer BC, OTHER ==
[~2022-08-09] VITALS: Ht 167.6 cm; Wt 113.4 kg
[~2022-08-09 17:23] MED LIST changes: +IBUPROFEN800 MG PO; +METAMUCIL FIBE3.4 GM PO; +OXYCODONE-ACET1 EAC1 PO
--- OUTSIDE RECORDS SUMMARY | 2022-08-09 17:32 | XMS ---
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 - Has Care Guidelines CARE PROVIDERS [facility]/[place] 03/24/2020-[facility] PHONE: [phone] Guidelines Source: [facility] Guidelines Date: 03/18/2021 Care Coordination: HAS CASE MANAGEMENT TEAM AT [facility]. DAVE DORSEY RN [phone]. Care History Medical/Surgical 05/03/2021 [facility] PATIENT IS [facility] ELIGIBLE, \T\middot;\T\nbsp; PLEASE REFER PATIENT TO [facility] FOR NON EMERGENT MEDICAL NEEDS. \T\middot;\T\nbsp; [facility] CAN SEE PATIENTS SAME DAY FOR APTS IF PATIENT CALLS FIRST THING IN THE MORNING. 04/10/2020 [facility] PATIENT CAN CALL HER CARGO SERVICES COORDINATOR AT [facility] PPO: CLAY CONDON\T\ nbsp;\T\nbsp; [phone] 03/06/2020 [facility] - DR SEN RECEIVED REFERRAL FROM [facility] 03/05/20. CURRENTLY WAITING ON 10/2019 OP REPORT FOR REVIEW. ONCE REVIEW IS COMPLETE- AN APT WILL BE SCHEDULED. Melisa VISIT COUNT (12 MO.) 1 OLAMIDE Zhang TOTAL 1 NOTE: Visits indicate total known visits. ED/UCC VISIT TRACKING (12 MO.) 08/09/2022 17:24 [facility] [place] TYPE: Emergency COMPLAINT: - LEG/BACK PAIN INPATIENT VISIT TRACKING (12 MO.) No inpatient visits to display in this time frame [email or web address]
[2022-08-09] MEDS ORDERED: VITAMIN D310 MC2 (19:45)
[2022-08-09] MEDS ORDERED: CRESTOR5 MG (19:45)
[2022-08-09] MEDS ORDERED: NICOTINE PATCH1 EACH (19:46)
[2022-08-09] MEDS ORDERED: MIRENA (19:46)
[2022-08-09 20:58] VITALS: BP 133/83
== END 2022-08-09 20:58 | disposition home or self-care (01) ==
LOC: ED 17:23
DX: B34.9 Viral infection, unspecified (principal); M54.50 Low back pain, unspecified; I10 Essential (primary) hypertension; Z79.899 Other long term (current) drug therapy
CPT/HCPCS: 99283